=== PATIENT | female | born 1990 | race American Indian/Alaskan Native ===

== ENCOUNTER 2017-12-09 14:27 | Emergency (ER) | payer SELFPAY ==
[2017-12-09 14:49] VITALS: BP 127/89
[2017-12-09] MEDS ORDERED: ROBITUSSIN PO ONE (16:19)
[2017-12-09] MEDS ORDERED: TYLENOL PO ONE (16:19)
[2017-12-09] MEDS ORDERED: DELTASONE PO ONE (16:19)
--- NOTE | 2017-12-09 17:16 | Emergency Department Report ---
Minor Respiratory - HPI Chief Complaint: Upper Respiratory Infection Stated Complaint: CHEST PAIN/SOB/SORE THROAT Time Seen by Provider: 12/09/17 16:11 Duration: 1 week Severity: moderate Minor Respiratory: Yes Sore Throat, Yes Able to Tolerate Fluids, Yes Cough, No Rhinorrhea, No Ear Pain, No Sick Contacts, No Hemoptysis, No Chest Pain, No Shortness of Breath, No Fever Other History: Patient is a 27-year-old female who presents to ED complaining of throat pain, cough and body aches 1 week. Patient states she's been getting by but today symptoms got worse. Patient states she is at a couple of episodes of vomiting with less of appetite. She states last menstrual period of ED Review of Systems ROS: Stated complaint: CHEST PAIN/SOB/SORE THROAT Other details as noted in HPI Constitutional: denies: chills, fever Eyes: denies: eye pain, eye discharge, vision change ENT: throat pain. denies: ear pain Respiratory: cough. denies: shortness of breath, wheezing Cardiovascular: denies: chest pain, palpitations Endocrine: no symptoms reported Gastrointestinal: denies: abdominal pain, nausea, diarrhea Genitourinary: denies: urgency, dysuria, discharge Musculoskeletal: denies: back pain, joint swelling, arthralgia Skin: denies: rash, lesions Neurological: denies: headache, weakness, paresthesias Psychiatric: denies: anxiety, depression Hematological/Lymphatic: denies: easy bleeding, easy bruising ED Past Medical Hx - Past Medical History Previous Medical History?: No - Surgical History Past Surgical History?: No - Social History Smoking Status: Current Some Day Smoker Substance Use Type: None - Medications Home Medications: Home Medications Medication Instructions Recorded Confirmed Last Taken Type Ibuprofen [Motrin] 800 mg PO Q8HR PRN #30 tablet 12/09/17 Unknown Rx guaiFENesin [Robitussin] 200 mg PO Q6HR #80 ml 12/09/17 Unknown Rx Minor Respiratory Exam - Exam General: Vital signs noted. No distress. Alert and acting appropriately. MOUTH:Mouth is well hydrated and without lesions. Tonsils erythematous and swollen, Uvula midline, Tongue mildly elevated. Mucous membranes are moist. Posterior pharynx clear, no exudate or lesions. Patent airways. NECK: Supple. Non edematous, anterior cervical lymphadenopathy . No C-spine tenderness HEENT: Yes Moist Mucous Membranes, No Pharyngeal Erythema, No Pharyngeal Exudates, No Rhinorrhea, No Conjuctival Injection, No Frontal Tenderness, No Maxillary Tenderness Ear: Neither TM Bulge, Neither TM Erythema, Neither EAC Pain, Neither EAC Discharge Neck: Yes Adenopathy (tender, swollen anterior cervical ), Yes Supple Lungs: Yes Good Air Exchange, No Wheezes, No Ronchi, No Stridor, No Cough, No Labored Respirations, No Retractions, No Use of Accessory Muscles, No Other Abnormal Lung Sounds Heart: Yes Regular, No Murmur Abdomen: Yes Normal Bowel Sounds, No Tenderness, No Peritoneal Signs Skin: No Rash, No Edema Neurologic: Alert and oriented, no deficits. Musculoskeletal: Unremarkable. ED Course Vital Signs 12/09/17 14:46 Temperature 99.5 F Pulse Rate 78 Respiratory 16 Rate Blood Pressure 127/89 O2 Sat by Pulse 96 Oximetry ED Medical Decision Making - Medical Decision Making 27-year-old female presents with strep pharyngitis. ED course: Rapid strep tests ordered rapid strep test positive Patient received 1 dose of Tylenol, 1.2 million units of penicillin, 60 mg of prednisone. And Robitussin No fever and ED stay. Vital signs stable patient is in no acute or respiratory distress. Discussed findings with patient about the positive strep. Discussed treatment in ED with patient Discussed the patient that strep throat is contagious and to limit sharing spoons and such. Discussed with patient follow-up with primary care physician. Patient verbally states he understands and will comply to follow-up. Critical care attestation.: If time is entered above; I have spent that time in minutes in the direct care of this critically ill patient, excluding procedure time. ED Disposition Clinical Impression: Strep pharyngitis Acute tonsillitis Qualifiers: Pharyngitis/tonsillitis etiology: streptococcus Streptococcal tonsillitis recurrence: not specified as recurrent or not Qualified Code(s): J03.00 - Acute streptococcal tonsillitis, unspecified Disposition: - TO HOME OR SELFCARE Is pt being admited?: No Does the pt Need Aspirin: No Condition: Stable Instructions: Tonsillitis (ED), Strep Throat (ED) Additional Instructions: Make sure to follow up with the primary care physician as discussed. Take all your medications as you've been prescribed. If you have any worsening symptoms or develop new symptoms please return to ED immediately. Prescriptions: guaiFENesin [Robitussin] 200 mg PO Q6HR #80 ml Ibuprofen [Motrin] 800 mg PO Q8HR PRN #30 tablet PRN Reason: Pain Referrals: PRIMARY CAREMD [Primary Care Provider] - 3-5 Days VALERIA PEREZ MD [Referring] - 3-5 Days [facility] [Outside] - 3-5 Days [facility] [Outside] - 3-5 Days Forms: Accompanied Note, Work/School Release Form(ED) Time of Disposition: 17:51
[2017-12-09] MEDS ORDERED: BICILLIN L-A IM ONE ×2 (17:43→17:46)
[2017-12-09] MEDS ORDERED: BICILLIN CR IM ONE (18:41)
== END 2017-12-09 18:47 | disposition home or self-care (01) ==
LOC: ED 14:27
DX: J02.0 Streptococcal pharyngitis (principal); J03.90 Acute tonsillitis, unspecified; F17.200 Nicotine dependence, unspecified, uncomplicated
CPT/HCPCS: 36415; 84703; 87430; 96372; 99283; J0558; J7512; J0561